=== PATIENT | female | born 1985 | race Caucasian/White ===

== ENCOUNTER 2017-01-26 12:26 | Inpatient (IN) | payer MEDICAID, OTHER ==
[~2017-01-26] VITALS: Ht 157.5 cm; Wt 48.0 kg
[2017-01-26] VITALS (8 sets, daily range): BP systolic 112–180; BP diastolic 58–84; PULSE 52–112; RESP 15–22; TEMP 97.4–98.2; O2SAT 98–100
[2017-01-26] MEDS ORDERED: MORPHINE SULFATE 4 MG/ML INJ IV PUSH ONE (13:00)
[2017-01-26] MEDS ORDERED: KETOROLAC TROMETHAMINE 30 MG/ML (IVP) VIAL IV PUSH ONE (13:00)
[2017-01-26 13:34] LABS: AUTOMATED NEUTROPHIL # 6.8 TH/MM3 (1.8-7.7); BASOPHIL % 0.1 % (0.0-2.0); EOSINOPHIL % 0.3 % (0.0-4.0); HEMO FLAGS DIFF FINAL; LYMPH % 20.1 % (9.0-44.0); LYMPHOCYTE # 1.9 TH/MM3 (1.0-4.8); MEAN CELL VOLUME 87.8 FL (80.0-100.0); MEAN CORPUSCULAR HEMOGLOBIN 29.9 PG (27.0-34.0); MEAN CORPUSCULAR HGB CONC 34.1 % (32.0-36.0); MONO % 6.6 % (0.0-8.0); NEUT % 72.9 % (16.0-70.0); PLATELET COUNT 192 TH/MM3 (150-450); RED BLOOD COUNT 4.33 MIL/MM3 (4.00-5.30); RED CELL DISTRIBUTION WIDTH 12.7 % (11.6-17.2); WHITE BLOOD COUNT 9.3 TH/MM3 (4.0-11.0)
--- NOTE | 2017-01-26 13:41 | RADRPT ---
EXAM DATE/TIME: 01/26/2017 13:30 [facility] COMPARISON: No previous studies available for comparison. INDICATIONS : Chest Pain MEDICAL HISTORY : None. SURGICAL HISTORY : None. ENCOUNTER: Initial ACUITY: 1 day PAIN SCORE: 10/10 LOCATION: Left chest FINDINGS: There is a large approximate 5.8 cm pneumothorax on the left side which wraps around the left lung wi thout definite displaced rib fractures. The lungs are clear without infiltrate, nodule, or mass. The re is no appreciable pleural effusion for technique. Heart and mediastinum are unremarkable. CONCLUSION: Large left pneumothorax without signs of tension. Wali Cornejo MD on January 26, 2017 at 13:38 Board Certified Radiologist. This report was verified electronically.
[2017-01-26 13:46] LABS: APTT (PATIENT) 28.5 SEC (24.3-30.1); PROTHROMBIN TIME - PATIENT 11.5 SEC (9.8-11.6)
[2017-01-26 13:53] LABS: ANION GAP 7 MEQ/L (5-15); BICARBONATE 23.8 MEQ/L (21.0-32.0); BLOOD UREA NITROGEN 10 MG/DL (7-18); CHLORIDE 110 MEQ/L (98-107); GLOMERULAR FILTRATION RATE 108 ML/MIN (>89); POTASSIUM 3.5 MEQ/L (3.5-5.1); SODIUM (NA) 141 MEQ/L (136-145)
[2017-01-26] MEDS ORDERED: LIDOCAINE HCL 1% 50 ML VIAL INFIL ONE (14:00)
[2017-01-26] MEDS ORDERED: HYDROmorphone HCL PF 1 MG/ML VIAL IV PUSH ONE ×2 (14:00→15:30)
[2017-01-26] MEDS ORDERED: MIDAZOLAM HCL 2 MG/2 ML VIAL IV PUSH ONE (14:00)
--- NOTE | 2017-01-26 15:07 | PD ---
HPI Chief Complaint: Chest Pain Time Seen by Provider: 12:41 Travel History International Travel<30 days: No Contact w/Intl Traveler<30days: No Traveled to known affect area: No History of Present Illness HPI Patient is a 31 year old female who comes in complaining of pain to the left side of her chest with SOB. She says the pain woke her up from sleep last night and got worse today. She says she has severe pain when taking deep breaths. She denies nausea or vomiting. She denies any leg pain or swelling. She denies any recent travel. PFSH Past Medical History ?: Not LMP: 01/26/17 Social History Alcohol Use: No Tobacco Use: Yes Substance Use: No Allergies-Medications (Allergen,Severity, Reaction): Coded Allergies: No Known Allergies (Unverified , 01/26/17) Reported Meds & Prescriptions Reported Meds & Active Scripts Active No Active Prescriptions or Reported Medications Review of Systems Except as stated in HPI: all other systems reviewed are Neg General / Constitutional: No: Fever, Chills HENT: No: Headaches, Lightheadedness Cardiovascular: Positive: Chest Pain or Discomfort Respiratory: Positive: Cough, Shortness of Breath Gastrointestinal: No: Nausea, Vomiting Genitourinary: No: Dysuria Musculoskeletal: No: Myalgias Skin: No Change in Pigmentation Neurologic: No: Weakness, Dizziness Physical Exam Narrative GENERAL: Awake and alert, in mild distress due to pain. SKIN: Focused skin assessment warm/dry. HEAD: Atraumatic. Normocephalic. EYES: Pupils equal and round. No scleral icterus. No injection or drainage. ENT: No nasal bleeding or discharge. Mucous membranes pink and moist. NECK: Trachea midline. No JVD. CARDIOVASCULAR: Regular rate and rhythm. No murmur appreciated. RESPIRATORY: No accessory muscle use. absent breath sounds on the left. MUSCULOSKELETAL: No obvious deformities. No clubbing. No cyanosis. No edema. NEUROLOGICAL: Awake and alert. No obvious cranial nerve deficits. Motor grossly within normal limits. Normal speech. PSYCHIATRIC: Appropriate mood and affect; insight and judgment normal. Data Data Last Documented VS Vital Signs Date Time Temp Pulse Resp B/P Pulse Ox O2 Delivery O2 Flow Rate FiO2 01/26/17 14:45 52 17 122/74 100 Non-Rebreather 12 01/26/17 12:29 98.2 Orders Chest, Pa & Lat (01/26/17 ) Complete Blood Count With Diff (01/26/17 12:53) Basic Metabolic Panel (Bmp) (01/26/17 12:53) Act Partial Throm Time (Ptt) (01/26/17 12:53) Prothrombin Time / Inr (Pt) (01/26/17 12:53) Troponin I (01/26/17 12:53) D-Dimer (01/26/17 12:53) Ketorolac Inj (Toradol Inj) (01/26/17 13:00) Morphine Inj (Morphine Inj) (01/26/17 13:00) Ed Urine Pregnancytest Poc (01/26/17 12:53) Electrocardiogram (01/26/17 ) Midazolam Inj (Versed Inj) (01/26/17 14:00) Hydromorphone Pf Inj (Dilaudid Pf Inj) (01/26/17 14:00) Lidocaine 1% Inj (50 Ml) (Xylocaine 1% I (01/26/17 14:00) Chest, Single Ap (01/26/17 ) Labs Laboratory Tests Test 01/26/17 13:00 White Blood Count 9.3 TH/MM3 Red Blood Count 4.33 MIL/MM3 Hemoglobin 13.0 GM/DL Hematocrit 38.0 % Mean Corpuscular Volume 87.8 FL Mean Corpuscular Hemoglobin 29.9 PG Mean Corpuscular Hemoglobin 34.1 % Concent Red Cell Distribution Width 12.7 % Platelet Count 192 TH/MM3 Mean Platelet Volume 8.0 FL Neutrophils (%) (Auto) 72.9 % Lymphocytes (%) (Auto) 20.1 % Monocytes (%) (Auto) 6.6 % Eosinophils (%) (Auto) 0.3 % Basophils (%) (Auto) 0.1 % Neutrophils # (Auto) 6.8 TH/MM3 Lymphocytes # (Auto) 1.9 TH/MM3 Monocytes # (Auto) 0.6 TH/MM3 Eosinophils # (Auto) 0.0 TH/MM3 Basophils # (Auto) 0.0 TH/MM3 CBC Comment DIFF FINAL Differential Comment Prothrombin Time 11.5 SEC Prothromb Time International 1.0 RATIO Ratio Activated Partial 28.5 SEC Thromboplast Time D-Dimer Quantitative (PE/DVT) 0.51 MG/L FEU Sodium Level 141 MEQ/L Potassium Level 3.5 MEQ/L Chloride Level 110 MEQ/L Carbon Dioxide Level 23.8 MEQ/L Anion Gap 7 MEQ/L Blood Urea Nitrogen 10 MG/DL Creatinine 0.64 MG/DL Estimat Glomerular Filtration 108 ML/MIN Rate Random Glucose 79 MG/DL Calcium Level 8.7 MG/DL Troponin I LESS THAN 0.02 NG/ML MDM Medical Decision Making Medical Screen Exam Complete: Yes Emergency Medical Condition: Yes Medical Record Reviewed: Yes Interpretation(s) ECG shows sinus rhythm at 64, no ST elevation or depression, ST flattening in aVL. Differential Diagnosis Pneumothorax versus pneumonia versus ACS Narrative Course Patient is a 31-year-old female who comes in complaining of chest pain and shortness of breath. Exam shows absent breath sounds on the left. IV established, labs sent. Chest x-ray obtained shows a left-sided pneumothorax. Chest tube inserted, patient placed on oxygen. Patient given pain medicine. Admitted for further management. Procedures Procedure Narrative CHEST TUBE THORACOSTOMY: The left chest was prepped with Betadine and sterilely draped. The area of the fifth intercostal interspace was infiltrated with 1% lidocaine plain. A 1.5 centimeter incision was made with a scalpel at the fifth intercostal space. Blunt dissection to the fourth intercostal interspace performed and the pleura was punctured with immediate hawkins of air. Finger was inserted in the space and thoracostomy tube was placed, directed posteriorly and superiorly. The thoracostomy tube was secured with suture. Sterile seal dressing placed. Patient tolerated procedure well. Diagnosis Primary Impression: Pneumothorax Qualified Code: J93.11 - Primary spontaneous pneumothorax Admitting Information Admitting Physician Requests: Admit Scripts No Active Prescriptions or Reported Meds Twyla Grayson MD Jan 26, 2017 15:07
--- NOTE | 2017-01-26 15:10 | RADRPT ---
EXAM DATE/TIME: 01/26/2017 14:37 [facility] COMPARISON: CHEST PA & LAT, January 26, 2017, 13:30. INDICATIONS : Status post chest tube placement. MEDICAL HISTORY : None. SURGICAL HISTORY : None. ENCOUNTER: Subsequent ACUITY: 1 day PAIN SCORE: Non-responsive. LOCATION: chest FINDINGS: There is minimal placement of a left-sided chest tube with resolution of the previous left pneumothor ax. Tiny apical pneumothorax persists. Minimal basal atelectasis. Heart size normal. CONCLUSION: 1. Placement of left chest tube with resolution of previous left pneumothorax except for a tiny left apical pneumothorax. Minimal base atelectasis. Immanuel Parra MD on January 26, 2017 at 15:06 Board Certified Radiologist. This report was verified electronically.
--- NOTE | 2017-01-26 15:28 | HHI.HP ---
[facility] Physician No Primary Care Physician Admission Diagnosis pneumothorax Diagnoses: Chief Complaint: Chest Pain Travel History International Travel<30 Days: No Contact w/Intl Traveler <30 Da: No Traveled to Known Affected Are: No History of Present Illness This is a pleasant 31 y/o Female who has no previous medical history who came to ER with Atypical left sided chest pain and Shortness of breath, She says the pain woke her up from sleep last night and got worse today. She says she has severe pain when taking deep breaths. She denies nausea or vomiting. She denies any leg pain or swelling. She denies any recent travel. the patient was seen in Emergency Room in the presence of Mr Rodriguez Strong and her Father Mr. Nuno Gil, she is stable somnolent due to pain medicine, but answer my questions. Review of Systems Respiratory: COMPLAINS OF: Shortness of breath Cardiovascular: COMPLAINS OF: Chest pain Past Family Social History Past Medical History Denies any past medical History Past Surgical History Denies any Surgical History Reported Medications Reported Meds & Active Scripts Active No Active Prescriptions or Reported Medications Allergies: Coded Allergies: No Known Allergies (Unverified , 01/26/17) Active Ordered Medications Current Medications Medications (Trade) Dose Ordered Sig/Halina Route Start Time Stop Time Status Last Admin (NS 1000 ml Inj) 1,000 ml @ 83 mls/hr Q12H3M IV 01/26/17 15:16 (NS Flush) 2 ml UNSCH PRN IV FLUSH 01/26/17 15:30 (NS Flush) 2 ml BID IV FLUSH 01/26/17 21:00 (Tylenol) 650 mg Q4H PRN PO 01/26/17 15:30 (Zofran Inj) 4 mg Q6H PRN IVP 01/26/17 15:30 (Dulcolax Supp) 10 mg DAILY PRN RECTAL 01/26/17 15:30 (Colace) 100 mg Q12H PO 01/26/17 15:30 (Narcan Inj) 0.4 mg UNSCH PRN IV 01/26/17 15:30 (Mucinex Er) 600 mg BID PO 01/26/17 21:00 (Habitrol 14 Mg Patch.24 Hr) 1 patch DAILY T-DERMAL 01/27/17 09:00 Miscellaneous Information 1 DAILY T-DERMAL 01/27/17 09:00 Miscellaneous Information 1 HS T-DERMAL 01/26/17 21:00 Family History Asked and the patient and her Father denies any medical history Social History Lives with her Kids and states Smokes one pack of cigarettes daily, denies other toxic habits. Physical Exam Vital Signs Vital Signs Date Time Temp Pulse Resp B/P Pulse Ox O2 Delivery O2 Flow Rate FiO2 01/26/17 14:45 52 17 122/74 100 Non-Rebreather 12 01/26/17 12:59 64 19 117/69 98 Room Air 01/26/17 12:29 98.2 80 15 112/81 98 Physical Exam GENERAL: Awake and alert, in mild distress due to pain. SKIN: Focused skin assessment warm/dry. HEAD: Atraumatic. Normocephalic. EYES: Pupils equal and round. No scleral icterus. No injection or drainage. ENT: No nasal bleeding or discharge. Mucous membranes pink and moist. NECK: Trachea midline. No JVD. CARDIOVASCULAR: Regular rate and rhythm. No murmur appreciated. RESPIRATORY: No accessory muscle use. Chest tube on left side present MUSCULOSKELETAL: No obvious deformities. No clubbing. No cyanosis. No edema. NEUROLOGICAL: Awake and alert. No obvious cranial nerve deficits. Motor grossly within normal limits. Normal speech. PSYCHIATRIC: Appropriate mood and affect; insight and judgment normal. Laboratory Laboratory Tests Test 01/26/17 13:00 White Blood Count 9.3 Red Blood Count 4.33 Hemoglobin 13.0 Hematocrit 38.0 Mean Corpuscular Volume 87.8 Mean Corpuscular Hemoglobin 29.9 Mean Corpuscular Hemoglobin 34.1 Concent Red Cell Distribution Width 12.7 Platelet Count 192 Mean Platelet Volume 8.0 Neutrophils (%) (Auto) 72.9 Lymphocytes (%) (Auto) 20.1 Monocytes (%) (Auto) 6.6 Eosinophils (%) (Auto) 0.3 Basophils (%) (Auto) 0.1 Neutrophils # (Auto) 6.8 Lymphocytes # (Auto) 1.9 Monocytes # (Auto) 0.6 Eosinophils # (Auto) 0.0 Basophils # (Auto) 0.0 CBC Comment DIFF FINAL Differential Comment Prothrombin Time 11.5 Prothromb Time International 1.0 Ratio Activated Partial 28.5 Thromboplast Time D-Dimer Quantitative (PE/DVT) 0.51 Sodium Level 141 Potassium Level 3.5 Chloride Level 110 Carbon Dioxide Level 23.8 Anion Gap 7 Blood Urea Nitrogen 10 Creatinine 0.64 Estimat Glomerular Filtration 108 Rate Random Glucose 79 Calcium Level 8.7 Troponin I LESS THAN 0.02 Result Diagram: 01/26/17 1300 01/26/17 1300 Imaging Last Impressions Chest X-Ray 01/26/17 0000 Signed Impressions: Service Date/Time: Thursday, January 26, 2017 13:30 - CONCLUSION: Large left pneumothorax without signs of tension. Wali Cornejo MD Assessment and Plan Assessment and Plan 1. Large Left Spontaneous Pneumothorax, ECG shows sinus rhythm at 64, no ST elevation or depression, ST flattening in aVL. Chest tube inserted by ER specialist, continue Oxygen as needed, Bronchodilator, Mucolytic, incentive spirometry, follow laboratory, TSH, Free T4, hemoglobin A1C, Lipi Profile. insurance customer service specialist consult, Pain medicine. 2. Tobacco dependence given Nicotine replacement, strongly recommended to stop smoking DVT prophylaxis with SCDs. Discussed with Emergency Medicine specialist Doctor Twyla Grayson Code Status Full Code. Discussed Condition With Discussed with Emergency Medicine specialist Doctor Twyla Grayson Patient, Mr. Rodriguez Strong and her Father Mr. Nuno Gil. all questions answered to the best of my abilities. Physician Certification 2 Midnight Certification Type: Admission for Inpatient Services Order for Inpatient Services The services are ordered in accordance with Medicare regulations or non- Medicare payer requirements, as applicable. In the case of services not specified as inpatient-only, they are appropriately provided as inpatient services in accordance with the 2-midnight benchmark. Estimated LOS (days): 3 days is the estimated time the patient will need to remain in the hospital, assuming treatment plan goals are met and no additional complications. Post-Hospital Plan: Home Mariano Montiel MD Jan 26, 2017 15:28
[2017-01-26] MEDS ORDERED: BISACODYL 10 MG SUPP RECTAL PRN (15:30)
[2017-01-26] MEDS: DOCUSATE SODIUM 100 MG CAP PO SCH (15:30)
[2017-01-26] MEDS ORDERED: ACETAMINOPHEN 325 MG TAB PO PRN (15:30)
[2017-01-26] MEDS ORDERED: SODIUM CHLORIDE 0.9% FLUSH 10 ML FLUSH IV FLUSH PRN (15:30)
[2017-01-26] MEDS ORDERED: NALOXONE HCL 0.4 MG/ML AMP IV PRN (15:30)
[2017-01-26] MEDS ORDERED: ONDANSETRON HCL 4 MG/2 ML VIAL IVP PRN (15:30)
[2017-01-26] MEDS: RESP: ALBUTEROL 2.5 MG/IPRATROPIUM 0.5 MG NEB (SCH) NEB (16:14)
[2017-01-26] MEDS: SODIUM CHLOR 0.9% 1000 ML INJ 1,000 ML IV SCH (16:15)
[2017-01-26 16:36] LABS: BACTERIA, URINE FEW /hpf; BLOOD, URINE MOD (NEG); COMMENT (UR) CULTURE INDICATED; CULTURE IF INDICATED CULTURE INDICATED; GLUCOSE,URINE NEG (NEG); KETONE, URINE 40 mg/dL (NEG); MUCUS URINE MANY /lpf (OCC); SQUAMOUS EPITHELIAL CELL URINE 5 /hpf (0-5)
[2017-01-26 16:38] LABS: NITRITE,URINE POS (NEG); URINE COLOR LIGHT-ORANGE (YELLW/STRAW)
[2017-01-26 17:45] LABS: BARBITURATES, URINE NEG (NEG); COCAINE, URINE NEG (NEG)
[2017-01-26 17:46] LABS: AMPHETAMINE, URINE POS (NEG)
--- NOTE | 2017-01-26 18:12 | MB ---
cc: PAULINO SIDDIQUI DATE OF CONSULTATION 01/26/[address] Flores REASON FOR CONSULTATION Evaluation of pneumothorax. HISTORY OF PRESENT ILLNESS Ms. Strong is a pleasant 31-year-old female with history of nicotine use, continues to smoke half a pack of cigarettes a day. She woke up with shortness of breath around 4 o'clock in the morning. She tried to go back to sleep, could not go back to sleep and, after awhile, she was also started to have chest pain with taking a deep breath. She did not feel better. She came to the emergency room. She was found to have a large left pneumothorax. Chest tube was placed by ER physician and had resolution of the pneumothorax. She denies any shortness of breath now, does have mild chest discomfort. She does not have any prior history of any pneumothorax or any lung problem, asthma or emphysema. No cocaine use. No bout of cough before the pneumothorax and no injury. PAST MEDICAL HISTORY unremarkable. MEDICATIONS At home, 1. Nicotine patch 2. Guaifenesin 600 mg twice a day 3. Albuterol/Atrovent nebulizer treatment. 4. Morphine for pain. ALLERGIES NO KNOWN DRUG ALLERGIES. SOCIAL HISTORY She is single. Lives with her children. She has three children. Has history of smoking. Continues to smoke half pack of cigarettes a day. Denies any drug use. 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 FAMILY HISTORY Noncontributory REVIEW OF SYSTEMS Her weight is stable. No hemoptysis. No DVT or pulmonary embolism. No seizure, stroke or epilepsy. No COPD. She has implant for blood control three years ago. PHYSICAL EXAMINATION GENERAL: Moderately built, well-nourished female not in acute distress. VITAL SIGNS: Blood pressure is 127/58, heart rate 65, respirations 20, temperature 98.2 HEENT: Pupils are equal and reactive to light. Oral mucosa, nasal mucosa normal. NECK: Supple. JVP not raised. CHEST: She has left chest tube in place. No air leak. No subcutaneous emphysema. Good breath sounds bilaterally. CARDIOVASCULAR: S1, S2 normal. ABDOMEN: Soft, nondistended. Bowel sounds are present. EXTREMITIES: No edema. IMPRESSION 1. Spontaneous pneumothorax resolved with chest tube placement. 2. Nicotine use. PLAN I discussed with the patient and advised her to quit smoking. Her chest tube is on suction. We will get the chest x-ray tomorrow and, if no pneumothorax, we will clamp the chest tube and proceed from there. Further treatment will depend on the course in the hospital. Thank you, Dr. Flores, for this consultation. MD LUCERO Keller/ /5:33 PM /5:50 PM
[2017-01-26] MEDS: MORPHINE SULFATE 4 MG/ML INJ IV PUSH PRN ×2 (18:24→22:04)
[2017-01-26] MEDS: guaiFENesin E.R. 600 MG TAB PO SCH (20:04)
[2017-01-26] MEDS: SODIUM CHLORIDE 0.9% FLUSH 10 ML FLUSH IV FLUSH SCH (20:06)
[2017-01-26] MEDS: REMOVE OLD PATCH T-DERMAL SCH (20:08)
[2017-01-26 20:12] LABS: CREATINE KINASE 144 U/L (26-192)
[2017-01-27] VITALS (11 sets, daily range): BP systolic 105–144; BP diastolic 55–72; PULSE 52–96; RESP 15–22; TEMP 97.4–98.9; O2SAT 97–100
[2017-01-27] MEDS: RESP: ALBUTEROL 2.5 MG/IPRATROPIUM 0.5 MG NEB (SCH) NEB ×7 (00:46→23:41)
[2017-01-27] MEDS: MORPHINE SULFATE 4 MG/ML INJ IV PUSH PRN ×7 (00:54→23:43)
[2017-01-27 01:26] LABS: AUTOMATED NEUTROPHIL # 6.2 TH/MM3 (1.8-7.7); BASOPHIL % 0.1 % (0.0-2.0); EOSINOPHIL % 0.4 % (0.0-4.0); HEMATOCRIT 37.5 % (35.0-46.0); HEMO FLAGS DIFF FINAL; LYMPH % 19.2 % (9.0-44.0); LYMPHOCYTE # 1.6 TH/MM3 (1.0-4.8); MEAN CELL VOLUME 89.6 FL (80.0-100.0); MEAN CORPUSCULAR HEMOGLOBIN 29.4 PG (27.0-34.0); MEAN CORPUSCULAR HGB CONC 32.8 % (32.0-36.0); MONO % 5.9 % (0.0-8.0); NEUT % 74.4 % (16.0-70.0); PLATELET COUNT 159 TH/MM3 (150-450); RED BLOOD COUNT 4.18 MIL/MM3 (4.00-5.30); RED CELL DISTRIBUTION WIDTH 12.6 % (11.6-17.2); WHITE BLOOD COUNT 8.3 TH/MM3 (4.0-11.0)
[2017-01-27 01:47] LABS: CREATINE KINASE 157 U/L (26-192); FREE T4 1.43 NG/DL (0.76-1.46)
[2017-01-27] MEDS: DOCUSATE SODIUM 100 MG CAP PO SCH ×2 (03:30→15:56)
[2017-01-27] MEDS: SODIUM CHLOR 0.9% 1000 ML INJ 1,000 ML IV SCH ×2 (05:00→15:55)
[2017-01-27 05:47] LABS: POTASSIUM 3.5 MEQ/L (3.5-5.1)
[2017-01-27 05:50] LABS: HDL CHOLESTEROL 49.9 MG/DL (40.0-60.0)
[2017-01-27] MEDS: guaiFENesin E.R. 600 MG TAB PO SCH ×2 (07:34→19:39)
[2017-01-27] MEDS: NICOTINE 14 MG/24 HR PATCH T-DERMAL SCH (07:34)
[2017-01-27] MEDS: REMOVE OLD PATCH T-DERMAL SCH ×2 (07:34→19:43)
[2017-01-27] MEDS: SODIUM CHLORIDE 0.9% FLUSH 10 ML FLUSH IV FLUSH SCH ×2 (07:34→19:41)
--- NOTE | 2017-01-27 09:33 | HHI.PR ---
Subjective Remarks This is a pleasant 31 y/o Female who has no previous medical history who came to ER with Atypical left sided chest pain and Shortness of breath, She says the pain woke her up from sleep last night and got worse today. She says she has severe pain when taking deep breaths. She denies nausea or vomiting. 01/27: Seen in her bedroom in the presence of her Significant other, no complaint , no nausea, vomit or diarrhea. Objective Vital Signs Date Time Temp Pulse Resp B/P Pulse Ox O2 Delivery O2 Flow Rate FiO2 01/27/17 08:08 98 21 01/27/17 08:00 97.9 52 17 106/56 98 01/27/17 04:00 97.6 65 22 144/70 97 01/27/17 03:35 98 21 01/27/17 00:55 98 Nasal Cannula 21 01/27/17 00:00 98.9 60 20 105/55 100 01/26/17 22:16 97.8 112 22 180/84 100 01/26/17 20:05 80 01/26/17 18:00 97.4 82 19 134/80 99 01/26/17 17:26 65 22 127/58 98 Nasal Cannula 3 01/26/17 16:17 99 Nasal Cannula 3.00 01/26/17 14:45 52 17 122/74 100 Non-Rebreather 12 01/26/17 12:59 64 19 117/69 98 Room Air 01/26/17 12:29 98.2 80 15 112/81 98 I/O 01/26/17 01/26/17 01/26/17 01/27/17 01/27/17 01/27/17 07:00 15:00 23:00 07:00 15:00 23:00 Intake Total 280 ml 806 ml Output Total 10 ml 200 ml 10 ml Balance -10 ml 80 ml 796 ml Intake Oral 120 ml 120 ml IV Total 160 ml 686 ml Output Urine Total 200 ml Chest Tube Drainage Total 10 ml 10 ml # Voids 0 # Bowel Movements 0 0 Result Diagram: 01/27/17 0050 01/27/17 0451 Imaging Last Impressions Chest X-Ray 01/26/17 0000 Signed Impressions: Service Date/Time: Thursday, January 26, 2017 14:37 - CONCLUSION: 1. Placement of left chest tube with resolution of previous left pneumothorax except for a tiny left apical pneumothorax. Minimal base atelectasis. Immanuel Parra MD Procedures Left Chest tube placement Other Results Laboratory Tests Test 01/26/17 01/26/17 01/27/17 01/27/17 13:00 15:45 00:50 04:51 Prothrombin Time 11.5 SEC Prothromb Time International 1.0 RATIO Ratio Activated Partial 28.5 SEC Thromboplast Time D-Dimer Quantitative (PE/DVT) 0.51 MG/L FEU Urine Color LIGHT-ORANGE Urine Turbidity CLOUDY Urine pH 6.0 Urine Specific [place] 1.036 Urine Protein 30 mg/dL Urine Glucose (UA) NEG mg/dL Urine Ketones 40 mg/dL Urine Occult Blood MOD Urine Nitrite POS Urine Bilirubin NEG Urine Urobilinogen LESS THAN 2.0 MG/DL Urine Leukocyte Esterase LARGE Urine WBC 93 /hpf Urine WBC Clumps MANY Urine Squamous Epithelial 5 /hpf Cells Urine Bacteria FEW /hpf Urine Mucus MANY /lpf Microscopic Urinalysis Comment CULTURE INDICATED Urine Opiates Screen NEG Urine Barbiturates Screen NEG Urine Amphetamines Screen POS Urine Benzodiazepines Screen NEG Urine Cocaine Screen NEG Urine Cannabinoids Screen POS White Blood Count 8.3 TH/MM3 Red Blood Count 4.18 MIL/MM3 Hemoglobin 12.3 GM/DL Hematocrit 37.5 % Mean Corpuscular Volume 89.6 FL Mean Corpuscular Hemoglobin 29.4 PG Mean Corpuscular Hemoglobin 32.8 % Concent Red Cell Distribution Width 12.6 % Platelet Count 159 TH/MM3 Mean Platelet Volume 7.8 FL Neutrophils (%) (Auto) 74.4 % Lymphocytes (%) (Auto) 19.2 % Monocytes (%) (Auto) 5.9 % Eosinophils (%) (Auto) 0.4 % Basophils (%) (Auto) 0.1 % Neutrophils # (Auto) 6.2 TH/MM3 Lymphocytes # (Auto) 1.6 TH/MM3 Monocytes # (Auto) 0.5 TH/MM3 Eosinophils # (Auto) 0.0 TH/MM3 Basophils # (Auto) 0.0 TH/MM3 CBC Comment DIFF FINAL Differential Comment Total Creatine Kinase 157 U/L Troponin I LESS THAN 0.02 NG/ML Free Thyroxine 1.43 NG/DL Thyroid Stimulating Hormone 0.279 uIU/ML 3rd Gen Sodium Level 143 MEQ/L Potassium Level 3.5 MEQ/L Chloride Level 111 MEQ/L Carbon Dioxide Level 20.0 MEQ/L Anion Gap 12 MEQ/L Blood Urea Nitrogen 9 MG/DL Creatinine 0.47 MG/DL Estimat Glomerular Filtration 155 ML/MIN Rate Random Glucose 68 MG/DL Calcium Level 8.0 MG/DL Triglycerides Level 47 MG/DL Cholesterol Level 97 MG/DL LDL Cholesterol 38 MG/DL HDL Cholesterol 49.9 MG/DL Cholesterol/HDL Ratio 1.94 RATIO Objective Remarks GENERAL: Awake and alert, in mild distress due to pain. SKIN: Focused skin assessment warm/dry. HEAD: Atraumatic. Normocephalic. EYES: Pupils equal and round. No scleral icterus. No injection or drainage. ENT: No nasal bleeding or discharge. Mucous membranes pink and moist. NECK: Trachea midline. No JVD. CARDIOVASCULAR: Regular rate and rhythm. No murmur appreciated. RESPIRATORY: No accessory muscle use. Chest tube on left side present MUSCULOSKELETAL: No obvious deformities. No clubbing. No cyanosis. No edema. NEUROLOGICAL: Awake and alert. No obvious cranial nerve deficits. Motor grossly within normal limits. Normal speech. PSYCHIATRIC: Appropriate mood and affect; insight and judgment normal. Medications and IVs Current Medications Medications (Trade) Dose Ordered Sig/Halina Route Start Time Stop Time Status Last Admin (NS 1000 ml Inj) 1,000 ml @ 83 mls/hr Q12H3M IV 01/26/17 15:16 01/27/17 05:00 (NS Flush) 2 ml UNSCH PRN IV FLUSH 01/26/17 15:30 (NS Flush) 2 ml BID IV FLUSH 01/26/17 21:00 (Tylenol) 650 mg Q4H PRN PO 01/26/17 15:30 (Zofran Inj) 4 mg Q6H PRN IVP 01/26/17 15:30 (Dulcolax Supp) 10 mg DAILY PRN RECTAL 01/26/17 15:30 (Colace) 100 mg Q12H PO 01/26/17 15:30 (Narcan Inj) 0.4 mg UNSCH PRN IV 01/26/17 15:30 (Mucinex Er) 600 mg BID PO 01/26/17 21:00 01/26/17 20:04 (Habitrol 14 Mg Patch.24 Hr) 1 patch DAILY T-DERMAL 01/27/17 09:00 Miscellaneous Information 1 DAILY T-DERMAL 01/27/17 09:00 Miscellaneous Information 1 HS T-DERMAL 01/26/17 21:00 (Morphine Inj) 2 mg Q3H PRN IV PUSH 01/26/17 16:00 01/27/17 07:33 A/P Assessment and Plan 1. Large Left Spontaneous Pneumothorax, ECG shows sinus rhythm at 64, no ST elevation or depression, ST flattening in aVL. Chest tube inserted by ER specialist, continue Oxygen as needed, Bronchodilator, Mucolytic, incentive spirometry, Stable tomorrow will have new CXR and possible to clamp the chest tube by retail product demo specialist appreciated assistance 2. Tobacco dependence given Nicotine replacement, strongly recommended to stop smoking DVT prophylaxis with SCDs. Code Status Full Code. Discussed Condition With Patient her significant Other and nurse Miss Casey present with me at all times while I was in the room. Discharge Planning When clear by retail product demo specialist. Mariano Montiel MD Jan 27, 2017 09:33
[2017-01-27 11:10] LABS: HEMOGLOBIN A1b 1.3 %; HEMOGLOBIN Ao 87.2 %; HEMOGLOBIN LA1C 1.5 %; HEMOGLOBIN P3 3.3 %
--- NOTE | 2017-01-27 14:12 | EKG ---
Date Performed: 01/26/2017 Time Performed: 12:49:59 PTAGE: 31 years EKG: Sinus rhythm WITH SHORT MA INTERVAL LOW QRS VOLTAGE IN PRECORDIAL LEADS BORDERLINE ECG NO PREVIOUS TRACING DOCTOR: Vick Desir Interpretating Date/Time 01/27/2017 14:11:07
--- NOTE | 2017-01-27 18:31 | HHI.PR ---
Subjective Remarks 31 YOWF with PTX, s/p Chest tube has mild CP Denies sob has cough Chest tube no airleak. Objective Vital Signs Vital Signs Date Time Temp Pulse Resp B/P Pulse Ox O2 Delivery O2 Flow Rate FiO2 01/27/17 16:00 98.0 54 15 124/72 97 01/27/17 12:00 97.5 56 17 110/70 99 01/27/17 08:08 98 21 01/27/17 08:00 97.9 52 17 106/56 98 01/27/17 04:00 97.6 65 22 144/70 97 01/27/17 03:35 98 21 01/27/17 00:55 98 Nasal Cannula 21 01/27/17 00:00 98.9 60 20 105/55 100 01/26/17 22:16 97.8 112 22 180/84 100 01/26/17 20:05 80 I/O 01/26/17 01/26/17 01/26/17 01/27/17 01/27/17 01/27/17 07:00 15:00 23:00 07:00 15:00 23:00 Intake Total 280 ml 806 ml 994 ml Output Total 10 ml 200 ml 10 ml 604 ml Balance -10 ml 80 ml 796 ml 390 ml Intake Oral 120 ml 120 ml 240 ml IV Total 160 ml 686 ml 754 ml Output Urine Total 200 ml 600 ml Chest Tube Drainage Total 10 ml 10 ml 4 ml # Voids 0 # Bowel Movements 0 0 0 Result Diagram: 01/27/17 0050 01/27/17 0451 Objective Remarks GENERAL: MBMN WF NAD SKIN: Warm and dry. HEAD: Normocephalic. EYES: No scleral icterus. No injection or drainage. NECK: Supple, trachea midline. No JVD or lymphadenopathy. CARDIOVASCULAR: Regular rate and rhythm without murmurs, gallops, or rubs. RESPIRATORY: Breath sounds equal bilaterally. No accessory muscle use. Good BS bilat No airleak GASTROINTESTINAL: Abdomen soft, non-tender, nondistended. MUSCULOSKELETAL: No cyanosis, or edema. BACK: Nontender without obvious deformity. No CVA tenderness. A/P Assessment and Plan Left Spontaneous PTx resolved. Left Chest tube nicotine use PLAN: Ish tube to Suction Will Clamp chest tube in AM CXR in AM Sarmad Fontenot MD Jan 27, 2017 18:31
[2017-01-28 00:58] VITALS: BP 133/74; PULSE 84; RESP 17; TEMP 98.1; O2SAT 94
[2017-01-28] MEDS: RESP: ALBUTEROL 2.5 MG/IPRATROPIUM 0.5 MG NEB (SCH) NEB ×2 (03:06→08:00)
[2017-01-28] MEDS: MORPHINE SULFATE 4 MG/ML INJ IV PUSH PRN ×6 (03:26→23:58)
[2017-01-28] MEDS: DOCUSATE SODIUM 100 MG CAP PO SCH ×2 (03:29→14:40)
[2017-01-28] MEDS: SODIUM CHLOR 0.9% 1000 ML INJ 1,000 ML IV SCH ×2 (03:29→14:41)
[2017-01-28 04:46] VITALS: BP 126/63; PULSE 80; RESP 17; TEMP 97.6; O2SAT 98
--- NOTE | 2017-01-28 07:13 | RADRPT ---
EXAM DATE/TIME: 01/28/2017 05:49 [facility] COMPARISON: CHEST SINGLE AP, January 26, 2017, 14:37. INDICATIONS : Pain left chest, evaluate chest tube and left side pneumothorax MEDICAL HISTORY : pneumothorax SURGICAL HISTORY : chest tube ENCOUNTER: Subsequent ACUITY: 3 days PAIN SCORE: 10/10 LOCATION: Left chest FINDINGS: There is a tiny left apical pneumothorax with 2 mm of separation. The left-sided chest tube remains i n place. The lungs are grossly clear. There are no pleural effusions or pulmonary edema. The bony str uctures are stable. CONCLUSION: Tiny left apical pneumothorax with 2 mm of separation. Amos Burt MD on January 28, 2017 at 7:11 Board Certified Radiologist. This report was verified electronically.
[2017-01-28 08:00] VITALS: BP 115/69; PULSE 53; RESP 18; TEMP 97.7; O2SAT 98
--- NOTE | 2017-01-28 08:10 | HHI.PR ---
Subjective Remarks This is a pleasant 31 y/o Female who has no previous medical history who came to ER with Atypical left sided chest pain and Shortness of breath, She says the pain woke her up from sleep last night and got worse today. She says she has severe pain when taking deep breaths. She denies nausea or vomiting. 01/27: Seen in her bedroom in the presence of her Significant other. 01/28: Stable in her bedroom in the presence of her Significant Other, new CXR this morning showing, Tiny left apical Pneumothorax. event set up specialist following, he will clamp the Chest tube today if indicated. as per nurse Miss Camilo and she states wants to go Home was explained how the Chest tube works and the need to wait until can be clamped and removed if indicated. Objective Vital Signs Date Time Temp Pulse Resp B/P Pulse Ox O2 Delivery O2 Flow Rate FiO2 01/28/17 04:46 97.6 80 17 126/63 98 01/28/17 00:58 98.1 84 17 133/74 94 01/27/17 22:15 96 01/27/17 20:00 97.4 80 16 130/70 97 01/27/17 19:47 98 21 01/27/17 16:00 98.0 54 15 124/72 97 01/27/17 12:00 97.5 56 17 110/70 99 I/O 01/27/17 01/27/17 01/27/17 01/28/17 01/28/17 01/28/17 07:00 15:00 23:00 07:00 15:00 23:00 Intake Total 806 ml 994 ml 974 ml 1177 ml Output Total 10 ml 604 ml 800 ml 1200 ml Balance 796 ml 390 ml 174 ml -23 ml Intake Oral 120 ml 240 ml 480 ml 480 ml IV Total 686 ml 754 ml 494 ml 697 ml Output Urine Total 600 ml 800 ml 1200 ml Chest Tube Drainage Total 10 ml 4 ml # Voids 0 # Bowel Movements 0 0 Result Diagram: 01/27/17 0050 01/27/17 0451 Imaging Last Impressions Chest X-Ray 01/28/17 0600 Signed Impressions: Service Date/Time: Saturday, January 28, 2017 05:49 - CONCLUSION: Tiny left apical pneumothorax with 2 mm of separation. Amos Burt MD Procedures Left Chest tube placement Other Results Laboratory Tests Test 01/26/17 01/26/17 01/27/17 01/27/17 13:00 15:45 00:50 04:51 Prothrombin Time 11.5 SEC Prothromb Time International 1.0 RATIO Ratio Activated Partial 28.5 SEC Thromboplast Time D-Dimer Quantitative (PE/DVT) 0.51 MG/L FEU Urine Opiates Screen NEG Urine Barbiturates Screen NEG Urine Amphetamines Screen POS Urine Benzodiazepines Screen NEG Urine Cocaine Screen NEG Urine Cannabinoids Screen POS Urine Color LIGHT-ORANGE Urine Turbidity CLOUDY Urine pH 6.0 Urine Specific [place] 1.036 Urine Protein 30 mg/dL Urine Glucose (UA) NEG mg/dL Urine Ketones 40 mg/dL Urine Occult Blood MOD Urine Nitrite POS Urine Bilirubin NEG Urine Urobilinogen LESS THAN 2.0 MG/DL Urine Leukocyte Esterase LARGE Urine WBC 93 /hpf Urine WBC Clumps MANY Urine Squamous Epithelial 5 /hpf Cells Urine Bacteria FEW /hpf Urine Mucus MANY /lpf Microscopic Urinalysis Comment CULTURE INDICATED White Blood Count 8.3 TH/MM3 Red Blood Count 4.18 MIL/MM3 Hemoglobin 12.3 GM/DL Hematocrit 37.5 % Mean Corpuscular Volume 89.6 FL Mean Corpuscular Hemoglobin 29.4 PG Mean Corpuscular Hemoglobin 32.8 % Concent Red Cell Distribution Width 12.6 % Platelet Count 159 TH/MM3 Mean Platelet Volume 7.8 FL Neutrophils (%) (Auto) 74.4 % Lymphocytes (%) (Auto) 19.2 % Monocytes (%) (Auto) 5.9 % Eosinophils (%) (Auto) 0.4 % Basophils (%) (Auto) 0.1 % Neutrophils # (Auto) 6.2 TH/MM3 Lymphocytes # (Auto) 1.6 TH/MM3 Monocytes # (Auto) 0.5 TH/MM3 Eosinophils # (Auto) 0.0 TH/MM3 Basophils # (Auto) 0.0 TH/MM3 CBC Comment DIFF FINAL Differential Comment Hemoglobin A1c 5.1 % Total Creatine Kinase 157 U/L Troponin I LESS THAN 0.02 NG/ML Free Thyroxine 1.43 NG/DL Thyroid Stimulating Hormone 0.279 uIU/ML 3rd Gen Sodium Level 143 MEQ/L Potassium Level 3.5 MEQ/L Chloride Level 111 MEQ/L Carbon Dioxide Level 20.0 MEQ/L Anion Gap 12 MEQ/L Blood Urea Nitrogen 9 MG/DL Creatinine 0.47 MG/DL Estimat Glomerular Filtration 155 ML/MIN Rate Random Glucose 68 MG/DL Calcium Level 8.0 MG/DL Triglycerides Level 47 MG/DL Cholesterol Level 97 MG/DL LDL Cholesterol 38 MG/DL HDL Cholesterol 49.9 MG/DL Cholesterol/HDL Ratio 1.94 RATIO Objective Remarks GENERAL: Awake and alert, in mild distress due to pain. SKIN: Focused skin assessment warm/dry. HEAD: Atraumatic. Normocephalic. ENT: Extraocular movements Intact NECK: Trachea midline. No JVD. RESPIRATORY: No accessory muscle use. Chest tube on left side present MUSCULOSKELETAL: No obvious deformities. No clubbing. No cyanosis. No edema. NEUROLOGICAL: Awake and alert. PSYCHIATRIC: Appropriate mood. Medications and IVs Current Medications Medications (Trade) Dose Ordered Sig/Halina Route Start Time Stop Time Status Last Admin (NS 1000 ml Inj) 1,000 ml @ 83 mls/hr Q12H3M IV 01/26/17 15:16 01/28/17 03:29 (NS Flush) 2 ml UNSCH PRN IV FLUSH 01/26/17 15:30 (NS Flush) 2 ml BID IV FLUSH 01/26/17 21:00 (Tylenol) 650 mg Q4H PRN PO 01/26/17 15:30 (Zofran Inj) 4 mg Q6H PRN IVP 01/26/17 15:30 (Dulcolax Supp) 10 mg DAILY PRN RECTAL 01/26/17 15:30 (Colace) 100 mg Q12H PO 01/26/17 15:30 01/27/17 15:56 (Narcan Inj) 0.4 mg UNSCH PRN IV 01/26/17 15:30 (Mucinex Er) 600 mg BID PO 01/26/17 21:00 01/27/17 19:39 (Habitrol 14 Mg Patch.24 Hr) 1 patch DAILY T-DERMAL 01/27/17 09:00 Miscellaneous Information 1 DAILY T-DERMAL 01/27/17 09:00 Miscellaneous Information 1 HS T-DERMAL 01/26/17 21:00 (Morphine Inj) 2 mg Q3H PRN IV PUSH 01/26/17 16:00 01/28/17 06:44 A/P Assessment and Plan 1. Large Left Spontaneous Pneumothorax, ECG shows sinus rhythm at 64, no ST elevation or depression, ST flattening in aVL. Chest tube inserted by ER specialist, continue Oxygen as needed, Bronchodilator, Mucolytic, incentive spirometry, Status post CXR found Left Tiny apical Pneumothorax, awaiting final recommendations by event set up specialist. 2. Tobacco dependence given Nicotine replacement, strongly recommended to stop smoking 3. Polysubstance abuse strongly recommended to stop behavior. DVT prophylaxis with SCDs. Code Status Full Code. Discussed Condition With Patient her significant Other in the room. Discharge Planning When clear by event set up specialist. Mariano Montiel MD Jan 28, 2017 08:10
[2017-01-28] MEDS: NICOTINE 14 MG/24 HR PATCH T-DERMAL SCH (09:00)
[2017-01-28] MEDS: SODIUM CHLORIDE 0.9% FLUSH 10 ML FLUSH IV FLUSH SCH ×2 (09:00→20:10)
[2017-01-28] MEDS: REMOVE OLD PATCH T-DERMAL SCH ×2 (09:00→20:10)
[2017-01-28] MEDS: guaiFENesin E.R. 600 MG TAB PO SCH ×2 (09:16→20:09)
[2017-01-28] MEDS ORDERED: RESP: ALBUTEROL 2.5 MG/IPRATROPIUM 0.5 MG NEB (PRN) NEB (11:30)
[2017-01-28 12:00] VITALS: BP 119/70; PULSE 56; RESP 18; TEMP 97.1; O2SAT 98
[2017-01-28 16:00] VITALS: BP 108/63; PULSE 61; RESP 18; TEMP 98.6; O2SAT 98
--- NOTE | 2017-01-28 19:23 | HHI.PR ---
Subjective Remarks 31 YOWF with PTX, s/p Chest tube has mild CP Denies sob has cough Chest tube no airleak. CXR Tiny apical PTX Objective Vital Signs Vital Signs Date Time Temp Pulse Resp B/P Pulse Ox O2 Delivery O2 Flow Rate FiO2 01/28/17 16:00 98.6 61 18 108/63 98 01/28/17 12:00 97.1 56 18 119/70 98 01/28/17 08:00 97.7 53 18 115/69 98 01/28/17 04:46 97.6 80 17 126/63 98 01/28/17 00:58 98.1 84 17 133/74 94 01/27/17 22:15 96 01/27/17 20:00 97.4 80 16 130/70 97 01/27/17 19:47 98 21 I/O 01/27/17 01/27/17 01/27/17 01/28/17 01/28/17 01/28/17 07:00 15:00 23:00 07:00 15:00 23:00 Intake Total 806 ml 994 ml 974 ml 1177 ml 1607 ml Output Total 10 ml 604 ml 800 ml 1200 ml 1400 ml Balance 796 ml 390 ml 174 ml -23 ml 207 ml Intake Oral 120 ml 240 ml 480 ml 480 ml 720 ml IV Total 686 ml 754 ml 494 ml 697 ml 887 ml Output Urine Total 600 ml 800 ml 1200 ml 1400 ml Chest Tube Drainage Total 10 ml 4 ml # Voids 0 # Bowel Movements 0 0 Result Diagram: 01/27/17 0050 01/27/17 0451 Objective Remarks GENERAL: MBMN WF NAD SKIN: Warm and dry. HEAD: Normocephalic. EYES: No scleral icterus. No injection or drainage. NECK: Supple, trachea midline. No JVD or lymphadenopathy. CARDIOVASCULAR: Regular rate and rhythm without murmurs, gallops, or rubs. RESPIRATORY: Breath sounds equal bilaterally. No accessory muscle use. Good BS bilat No airleak GASTROINTESTINAL: Abdomen soft, non-tender, nondistended. MUSCULOSKELETAL: No cyanosis, or edema. BACK: Nontender without obvious deformity. No CVA tenderness. A/P Assessment and Plan Left Spontaneous PTx resolved. Left Chest tube nicotine use PLAN: Ish tube to Suction Will Clamp chest tube in AM RPT CXR in AM If no ptx, will dc chest tube DW pt and Family Sarmad Fontenot MD Jan 28, 2017 19:23
[2017-01-28 20:00] VITALS: BP 114/71; PULSE 52; RESP 21; TEMP 98.2; O2SAT 97
[2017-01-29] VITALS: BP 123/73; PULSE 62; RESP 20; TEMP 98.8; O2SAT 97
[2017-01-29] MEDS: DOCUSATE SODIUM 100 MG CAP PO SCH ×2 (03:32→15:27)
[2017-01-29] MEDS: SODIUM CHLOR 0.9% 1000 ML INJ 1,000 ML IV SCH ×2 (03:32→15:27)
[2017-01-29 04:00] VITALS: BP 111/68; PULSE 54; RESP 20; TEMP 98.4; O2SAT 97
[2017-01-29] MEDS: MORPHINE SULFATE 4 MG/ML INJ IV PUSH PRN ×5 (04:33→23:29)
--- NOTE | 2017-01-29 06:22 | RADRPT ---
EXAM DATE/TIME: 01/29/2017 05:03 [facility] COMPARISON: CHEST SINGLE AP, January 28, 2017, 5:49. INDICATIONS : Pain in left chest, evaluate left apical pneumothorax and chest tube MEDICAL HISTORY : pneumothorax SURGICAL HISTORY : chest tube ENCOUNTER: Subsequent ACUITY: 4 - 6 days PAIN SCORE: 8/10 LOCATION: Left chest FINDINGS: A single view of the chest demonstrates the left-sided chest tubes in good position. Tiny left apical pneumothorax. The cardiomediastinal contours are unremarkable. Osseous structures are intact. CONCLUSION: Left chest remains in good position. Tiny left apical pneumothorax persists. Lungs are clear. Taye Lyons MD on January 29, 2017 at 6:20 Board Certified Radiologist. This report was verified electronically.
[2017-01-29 08:00] VITALS: BP 120/78; PULSE 66; RESP 17; TEMP 98.4; O2SAT 98
[2017-01-29] MEDS: guaiFENesin E.R. 600 MG TAB PO SCH ×2 (08:15→20:13)
[2017-01-29] MEDS: REMOVE OLD PATCH T-DERMAL SCH ×2 (08:15→21:00)
[2017-01-29] MEDS: SODIUM CHLORIDE 0.9% FLUSH 10 ML FLUSH IV FLUSH SCH ×2 (08:15→21:00)
[2017-01-29] MEDS: NICOTINE 14 MG/24 HR PATCH T-DERMAL SCH (08:15)
--- NOTE | 2017-01-29 10:27 | HHI.PR ---
Subjective Remarks This is a pleasant 31 y/o Female who has no previous medical history who came to ER with Atypical left sided chest pain and Shortness of breath, She says the pain woke her up from sleep last night and got worse today. She says she has severe pain when taking deep breaths. She denies nausea or vomiting. 01/27: Seen in her bedroom in the presence of her Significant other. 01/28: Stable in her bedroom in the presence of her Significant Other, new CXR this morning showing, Tiny left apical Pneumothorax. 01/29: Patient with better Mood today, awaiting for final recommendations by costume specialist, she knows today her CXR has tiny left apical pneumothorax, seen her in the presence at all times of female nurse Amarjit she has positive Urine culture for E coli but the patient is asymptomatic, started on Ceftriaxone 1 gram daily while she is in house and will give by mouth medicine on discharge depend of sensitivity. Objective Vital Signs Date Time Temp Pulse Resp B/P Pulse Ox O2 Delivery O2 Flow Rate FiO2 01/29/17 08:00 98.4 66 17 120/78 98 01/29/17 04:00 98.4 54 20 111/68 97 01/29/17 00:00 98.8 62 20 123/73 97 01/28/17 20:00 98.2 52 21 114/71 97 01/28/17 16:00 98.6 61 18 108/63 98 01/28/17 12:00 97.1 56 18 119/70 98 I/O 01/28/17 01/28/17 01/28/17 01/29/17 01/29/17 01/29/17 07:00 15:00 23:00 07:00 15:00 23:00 Intake Total 1177 ml 1607 ml 907 ml 791 ml Output Total 1200 ml 1400 ml 20 ml 850 ml Balance -23 ml 207 ml 887 ml -59 ml Intake Oral 480 ml 720 ml 240 ml 240 ml IV Total 697 ml 887 ml 667 ml 551 ml Output Urine Total 1200 ml 1400 ml 850 ml Chest Tube Drainage Total 20 ml # Voids 2 # Bowel Movements 0 0 Result Diagram: 01/27/17 0050 01/27/17 0451 Imaging Last Impressions Chest X-Ray 01/29/17 0600 Signed Impressions: Service Date/Time: Sunday, January 29, 2017 05:03 - CONCLUSION: Left chest remains in good position. Tiny left apical pneumothorax persists. Lungs are clear. Taye Lyons MD Procedures Left Chest tube placement Other Results Laboratory Tests Test 01/26/17 01/26/17 01/27/17 01/27/17 13:00 15:45 00:50 04:51 Prothrombin Time 11.5 SEC Prothromb Time International 1.0 RATIO Ratio Activated Partial 28.5 SEC Thromboplast Time D-Dimer Quantitative (PE/DVT) 0.51 MG/L FEU Urine Opiates Screen NEG Urine Barbiturates Screen NEG Urine Amphetamines Screen POS Urine Benzodiazepines Screen NEG Urine Cocaine Screen NEG Urine Cannabinoids Screen POS Urine Color LIGHT-ORANGE Urine Turbidity CLOUDY Urine pH 6.0 Urine Specific [place] 1.036 Urine Protein 30 mg/dL Urine Glucose (UA) NEG mg/dL Urine Ketones 40 mg/dL Urine Occult Blood MOD Urine Nitrite POS Urine Bilirubin NEG Urine Urobilinogen LESS THAN 2.0 MG/DL Urine Leukocyte Esterase LARGE Urine WBC 93 /hpf Urine WBC Clumps MANY Urine Squamous Epithelial 5 /hpf Cells Urine Bacteria FEW /hpf Urine Mucus MANY /lpf Microscopic Urinalysis Comment CULTURE INDICATED White Blood Count 8.3 TH/MM3 Red Blood Count 4.18 MIL/MM3 Hemoglobin 12.3 GM/DL Hematocrit 37.5 % Mean Corpuscular Volume 89.6 FL Mean Corpuscular Hemoglobin 29.4 PG Mean Corpuscular Hemoglobin 32.8 % Concent Red Cell Distribution Width 12.6 % Platelet Count 159 TH/MM3 Mean Platelet Volume 7.8 FL Neutrophils (%) (Auto) 74.4 % Lymphocytes (%) (Auto) 19.2 % Monocytes (%) (Auto) 5.9 % Eosinophils (%) (Auto) 0.4 % Basophils (%) (Auto) 0.1 % Neutrophils # (Auto) 6.2 TH/MM3 Lymphocytes # (Auto) 1.6 TH/MM3 Monocytes # (Auto) 0.5 TH/MM3 Eosinophils # (Auto) 0.0 TH/MM3 Basophils # (Auto) 0.0 TH/MM3 CBC Comment DIFF FINAL Differential Comment Hemoglobin A1c 5.1 % Total Creatine Kinase 157 U/L Troponin I LESS THAN 0.02 NG/ML Free Thyroxine 1.43 NG/DL Thyroid Stimulating Hormone 0.279 uIU/ML 3rd Gen Sodium Level 143 MEQ/L Potassium Level 3.5 MEQ/L Chloride Level 111 MEQ/L Carbon Dioxide Level 20.0 MEQ/L Anion Gap 12 MEQ/L Blood Urea Nitrogen 9 MG/DL Creatinine 0.47 MG/DL Estimat Glomerular Filtration 155 ML/MIN Rate Random Glucose 68 MG/DL Calcium Level 8.0 MG/DL Triglycerides Level 47 MG/DL Cholesterol Level 97 MG/DL LDL Cholesterol 38 MG/DL HDL Cholesterol 49.9 MG/DL Cholesterol/HDL Ratio 1.94 RATIO Objective Remarks GENERAL: Awake and alert, in mild distress due to pain. SKIN: Focused skin assessment warm/dry. HEAD: Atraumatic. Normocephalic. ENT: Extraocular movements Intact NECK: Trachea midline. No JVD. RESPIRATORY: No accessory muscle use. Chest tube on left side present MUSCULOSKELETAL: No obvious deformities. No clubbing. No cyanosis. No edema. NEUROLOGICAL: Awake and alert. PSYCHIATRIC: Appropriate mood. Medications and IVs Current Medications Medications (Trade) Dose Ordered Sig/Halina Route Start Time Stop Time Status Last Admin (NS 1000 ml Inj) 1,000 ml @ 83 mls/hr Q12H3M IV 01/26/17 15:16 01/29/17 03:32 (NS Flush) 2 ml UNSCH PRN IV FLUSH 01/26/17 15:30 (NS Flush) 2 ml BID IV FLUSH 01/26/17 21:00 (Tylenol) 650 mg Q4H PRN PO 01/26/17 15:30 (Zofran Inj) 4 mg Q6H PRN IVP 01/26/17 15:30 (Dulcolax Supp) 10 mg DAILY PRN RECTAL 01/26/17 15:30 (Colace) 100 mg Q12H PO 01/26/17 15:30 01/29/17 03:32 (Narcan Inj) 0.4 mg UNSCH PRN IV 01/26/17 15:30 (Mucinex Er) 600 mg BID PO 01/26/17 21:00 01/29/17 08:15 (Habitrol 14 Mg Patch.24 Hr) 1 patch DAILY T-DERMAL 01/27/17 09:00 Miscellaneous Information 1 DAILY T-DERMAL 01/27/17 09:00 Miscellaneous Information 1 HS T-DERMAL 01/26/17 21:00 (Morphine Inj) 2 mg Q3H PRN IV PUSH 01/26/17 16:00 01/29/17 10:03 A/P Assessment and Plan 1. Large Left Spontaneous Pneumothorax, ECG shows sinus rhythm at 64, no ST elevation or depression, ST flattening in aVL. Chest tube inserted by ER specialist, continue Oxygen as needed, Bronchodilator, Mucolytic, incentive spirometry, Status post CXR found Persistent Left Tiny apical Pneumothorax, awaiting final recommendations by costume specialist. 2. Tobacco dependence given Nicotine replacement, strongly recommended to stop smoking 3. Polysubstance abuse strongly recommended to stop behavior. 4. UTI Asymptomatic to the patient, Urinary Culture giving E Coli started on Ceftriaxone and follow sensitivity for Discharge antibiotics. even for Asymptomatic UTI there is not recommended antibiotic therapy in this case I prefer to treat due to basal pathology and avoid complications. DVT prophylaxis with SCDs. Code Status Full Code. Discussed Condition With Patient and present at all times in the room nurse Miss Ocasio and all questions answered to the best of my abilities. Discharge Planning When clear by costume specialist. Mariano Montiel MD Jan 29, 2017 10:27
[2017-01-29] MEDS ORDERED: cefTRIAXone INJ 1,000 MG in SODIUM CHLORIDE 0.9% INJ 100 ML IV SCH (11:00)
[2017-01-29 12:00] VITALS: BP 137/81; PULSE 63; RESP 16; TEMP 96.4; O2SAT 99
--- NOTE | 2017-01-29 13:52 | RADRPT ---
EXAM DATE/TIME: 01/29/2017 12:21 [facility] COMPARISON: CHEST SINGLE AP, January 29, 2017, 5:03. INDICATIONS : Post chest tube removal from left side, evaluate for pneumothorax MEDICAL HISTORY : left apical pneumothorax SURGICAL HISTORY : chest tube ENCOUNTER: Subsequent ACUITY: 4 - 6 days PAIN SCORE: 0/10 LOCATION: Left chest FINDINGS: A single view of the chest demonstrates the lungs to be symmetrically aerated without evidence of mas s, infiltrate or effusion. No residual left apical pneumothorax. The cardiomediastinal contours are unremarkable. Osseous structures are intact. Minimal subcutaneous gas and lower lateral left chest wall, stable from prior CONCLUSION: The lungs are clear. No residual left apical pneumothorax. Nuno Beth MD on January 29, 2017 at 13:50 Board Certified Radiologist. This report was verified electronically.
[2017-01-29 16:00] VITALS: BP 124/74; PULSE 65; RESP 18; TEMP 98.2; O2SAT 98
--- NOTE | 2017-01-29 19:11 | HHI.PR ---
Subjective Remarks 31 YOWF with PTX, s/p Chest tube has mild CP Denies sob has cough Chest tube removed CXR no ptx Objective Vital Signs Vital Signs Date Time Temp Pulse Resp B/P Pulse Ox O2 Delivery O2 Flow Rate FiO2 01/29/17 16:00 98.2 65 18 124/74 98 01/29/17 12:00 96.4 63 16 137/81 99 01/29/17 08:00 98.4 66 17 120/78 98 01/29/17 04:00 98.4 54 20 111/68 97 01/29/17 00:00 98.8 62 20 123/73 97 01/28/17 20:00 98.2 52 21 114/71 97 I/O 01/28/17 01/28/17 01/28/17 01/29/17 01/29/17 01/29/17 07:00 15:00 23:00 07:00 15:00 23:00 Intake Total 1177 ml 1607 ml 907 ml 791 ml 1713 ml Output Total 1200 ml 1400 ml 20 ml 850 ml 700 ml Balance -23 ml 207 ml 887 ml -59 ml 1013 ml Intake Oral 480 ml 720 ml 240 ml 240 ml 960 ml IV Total 697 ml 887 ml 667 ml 551 ml 753 ml Output Urine Total 1200 ml 1400 ml 850 ml 700 ml Chest Tube Drainage Total 20 ml # Voids 2 # Bowel Movements 0 0 0 Result Diagram: 01/27/17 0050 01/27/17 0451 Objective Remarks GENERAL: MBMN WF NAD SKIN: Warm and dry. HEAD: Normocephalic. EYES: No scleral icterus. No injection or drainage. NECK: Supple, trachea midline. No JVD or lymphadenopathy. CARDIOVASCULAR: Regular rate and rhythm without murmurs, gallops, or rubs. RESPIRATORY: Breath sounds equal bilaterally. No accessory muscle use. Good BS bilat GASTROINTESTINAL: Abdomen soft, non-tender, nondistended. MUSCULOSKELETAL: No cyanosis, or edema. BACK: Nontender without obvious deformity. No CVA tenderness. A/P Assessment and Plan Left Spontaneous PTx resolved. Left Chest tube nicotine use PLAN: Stable after chest tube removal Advised no heavy lifting, flying or scuba diving for 2 weeks. Sarmad Fontenot MD Jan 29, 2017 19:11
[2017-01-29 20:00] VITALS: BP 132/83; PULSE 83; RESP 19; TEMP 96.3; O2SAT 98
[2017-01-30] VITALS: BP 111/62; PULSE 70; RESP 20; TEMP 98.3; O2SAT 99
[2017-01-30] MEDS: SODIUM CHLOR 0.9% 1000 ML INJ 1,000 ML IV SCH (03:27)
[2017-01-30] MEDS: DOCUSATE SODIUM 100 MG CAP PO SCH (03:29)
[2017-01-30] MEDS: MORPHINE SULFATE 4 MG/ML INJ IV PUSH PRN ×2 (03:29→06:12)
[2017-01-30 04:00] VITALS: BP 110/63; PULSE 68; RESP 21; TEMP 97.9; O2SAT 97
[2017-01-30] MEDS: REMOVE OLD PATCH T-DERMAL SCH (07:40)
[2017-01-30] MEDS: SODIUM CHLORIDE 0.9% FLUSH 10 ML FLUSH IV FLUSH SCH (07:40)
[2017-01-30] MEDS: guaiFENesin E.R. 600 MG TAB PO SCH (07:40)
[2017-01-30] MEDS: NICOTINE 14 MG/24 HR PATCH T-DERMAL SCH (07:41)
[2017-01-30 08:00] VITALS: BP 137/68; PULSE 60; RESP 18; TEMP 98.8; O2SAT 99
--- NOTE | 2017-01-30 08:16 | HHI.PR ---
Subjective Remarks This is a pleasant 31 y/o Female who has no previous medical history who came to ER with Atypical left sided chest pain and Shortness of breath, She says the pain woke her up from sleep last night and got worse today. She says she has severe pain when taking deep breaths. She denies nausea or vomiting. 01/27: Seen in her bedroom in the presence of her Significant other. 01/28: Stable in her bedroom in the presence of her Significant Other, new CXR this morning showing, Tiny left apical Pneumothorax. 01/29: Patient with better Mood today, awaiting for final recommendations by case manager specialist, she knows today her CXR has tiny left apical pneumothorax, seen her in the presence at all times of female nurse Miss Ocasio she has positive Urine culture for E coli but the patient is asymptomatic, started on Ceftriaxone 1 gram daily while she is in house and will give by mouth medicine on discharge depend of sensitivity. 01/30: Stable in her bedroom, seen in the presence of her Significant Other Mr. Lilly Hudson asked to both of them to Stop smoking, new CXR showed no residual Pneumothorax. okay from case manager specialist to discharge Home. advised no heavy lifting, flying or scuba diving for two weeks. by Doctor Sarmad Fontenot Objective Vital Signs Date Time Temp Pulse Resp B/P Pulse Ox O2 Delivery O2 Flow Rate FiO2 01/30/17 04:00 97.9 68 21 110/63 97 01/30/17 00:00 98.3 70 20 111/62 99 01/29/17 20:00 96.3 83 19 132/83 98 01/29/17 16:00 98.2 65 18 124/74 98 01/29/17 12:00 96.4 63 16 137/81 99 I/O 01/29/17 01/29/17 01/29/17 01/30/17 01/30/17 01/30/17 07:00 15:00 23:00 07:00 15:00 23:00 Intake Total 791 ml 1713 ml 907 ml 708 ml Output Total 850 ml 700 ml 600 ml 300 ml Balance -59 ml 1013 ml 307 ml 408 ml Intake Oral 240 ml 960 ml 240 ml 240 ml IV Total 551 ml 753 ml 667 ml 468 ml Output Urine Total 850 ml 700 ml 600 ml 300 ml # Bowel Movements 0 0 0 0 Result Diagram: 01/27/17 0050 01/27/17 0451 Imaging Last Impressions Chest X-Ray 01/29/17 0600 Signed Impressions: Service Date/Time: Sunday, January 29, 2017 05:03 - CONCLUSION: Left chest remains in good position. Tiny left apical pneumothorax persists. Lungs are clear. Taye Lyons MD Procedures Left Chest tube placement Other Results Laboratory Tests Test 01/26/17 01/26/17 01/27/17 01/27/17 13:00 15:45 00:50 04:51 Prothrombin Time 11.5 SEC Prothromb Time International 1.0 RATIO Ratio Activated Partial 28.5 SEC Thromboplast Time D-Dimer Quantitative (PE/DVT) 0.51 MG/L FEU Urine Opiates Screen NEG Urine Barbiturates Screen NEG Urine Amphetamines Screen POS Urine Benzodiazepines Screen NEG Urine Cocaine Screen NEG Urine Cannabinoids Screen POS Urine Color LIGHT-ORANGE Urine Turbidity CLOUDY Urine pH 6.0 Urine Specific Coker 1.036 Urine Protein 30 mg/dL Urine Glucose (UA) NEG mg/dL Urine Ketones 40 mg/dL Urine Occult Blood MOD Urine Nitrite POS Urine Bilirubin NEG Urine Urobilinogen LESS THAN 2.0 MG/DL Urine Leukocyte Esterase LARGE Urine WBC 93 /hpf Urine WBC Clumps MANY Urine Squamous Epithelial 5 /hpf Cells Urine Bacteria FEW /hpf Urine Mucus MANY /lpf Microscopic Urinalysis Comment CULTURE INDICATED White Blood Count 8.3 TH/MM3 Red Blood Count 4.18 MIL/MM3 Hemoglobin 12.3 GM/DL Hematocrit 37.5 % Mean Corpuscular Volume 89.6 FL Mean Corpuscular Hemoglobin 29.4 PG Mean Corpuscular Hemoglobin 32.8 % Concent Red Cell Distribution Width 12.6 % Platelet Count 159 TH/MM3 Mean Platelet Volume 7.8 FL Neutrophils (%) (Auto) 74.4 % Lymphocytes (%) (Auto) 19.2 % Monocytes (%) (Auto) 5.9 % Eosinophils (%) (Auto) 0.4 % Basophils (%) (Auto) 0.1 % Neutrophils # (Auto) 6.2 TH/MM3 Lymphocytes # (Auto) 1.6 TH/MM3 Monocytes # (Auto) 0.5 TH/MM3 Eosinophils # (Auto) 0.0 TH/MM3 Basophils # (Auto) 0.0 TH/MM3 CBC Comment DIFF FINAL Differential Comment Hemoglobin A1c 5.1 % Total Creatine Kinase 157 U/L Troponin I LESS THAN 0.02 NG/ML Free Thyroxine 1.43 NG/DL Thyroid Stimulating Hormone 0.279 uIU/ML 3rd Gen Sodium Level 143 MEQ/L Potassium Level 3.5 MEQ/L Chloride Level 111 MEQ/L Carbon Dioxide Level 20.0 MEQ/L Anion Gap 12 MEQ/L Blood Urea Nitrogen 9 MG/DL Creatinine 0.47 MG/DL Estimat Glomerular Filtration 155 ML/MIN Rate Random Glucose 68 MG/DL Calcium Level 8.0 MG/DL Triglycerides Level 47 MG/DL Cholesterol Level 97 MG/DL LDL Cholesterol 38 MG/DL HDL Cholesterol 49.9 MG/DL Cholesterol/HDL Ratio 1.94 RATIO Objective Remarks GENERAL: Awake and alert, in mild distress due to pain. SKIN: Focused skin assessment warm/dry. HEAD: Atraumatic. Normocephalic. ENT: Extraocular movements Intact NECK: Trachea midline. No JVD. RESPIRATORY: No accessory muscle use. clear to auscultation bilateral. MUSCULOSKELETAL: No obvious deformities. No clubbing. No cyanosis. No edema. NEUROLOGICAL: Awake and alert. PSYCHIATRIC: Appropriate mood. Medications and IVs Current Medications Medications (Trade) Dose Ordered Sig/Halina Route Start Time Stop Time Status Last Admin (NS 1000 ml Inj) 1,000 ml @ 83 mls/hr Q12H3M IV 01/26/17 15:16 01/30/17 03:27 (NS Flush) 2 ml UNSCH PRN IV FLUSH 01/26/17 15:30 (NS Flush) 2 ml BID IV FLUSH 01/26/17 21:00 (Tylenol) 650 mg Q4H PRN PO 01/26/17 15:30 (Zofran Inj) 4 mg Q6H PRN IVP 01/26/17 15:30 (Dulcolax Supp) 10 mg DAILY PRN RECTAL 01/26/17 15:30 (Colace) 100 mg Q12H PO 01/26/17 15:30 01/30/17 03:29 (Narcan Inj) 0.4 mg UNSCH PRN IV 01/26/17 15:30 (Mucinex Er) 600 mg BID PO 01/26/17 21:00 01/30/17 07:40 (Habitrol 14 Mg Patch.24 Hr) 1 patch DAILY T-DERMAL 01/27/17 09:00 Miscellaneous Information 1 DAILY T-DERMAL 01/27/17 09:00 Miscellaneous Information 1 HS T-DERMAL 01/26/17 21:00 Morphine Sulfate 2 mg 2 mg Q3H PRN IV PUSH 01/26/17 16:00 01/30/17 06:12 (Rocephin Inj/NS Inj) 100 ml @ 200 mls/hr Q24H IV 01/29/17 11:00 01/29/17 12:25 A/P Assessment and Plan 1. Large Left Spontaneous Pneumothorax, ECG shows sinus rhythm at 64, no ST elevation or depression, ST flattening in aVL. Chest tube inserted by ER specialist, continue Oxygen as needed, Bronchodilator, Mucolytic, incentive spirometry, Status post new CXR no residual Pneumothorax. 2. Tobacco dependence given Nicotine replacement, strongly recommended to stop smoking 3. Polysubstance abuse strongly recommended to stop behavior. 4. UTI Asymptomatic to the patient, Urinary Culture giving E Coli started on Ceftriaxone and follow sensitivity for Discharge antibiotics. even for Asymptomatic UTI there is not recommended antibiotic therapy in this case I prefer to treat due to basal pathology and avoid complications. will continue Cipro by mouth. DVT prophylaxis with SCDs. Code Status Full Code. Discussed Condition With Stable in her bedroom, seen in the presence of her Significant Other Mr. Lilly Hudson asked to both of them to Stop smoking, new CXR showed no residual Pneumothorax. okay from case manager specialist to discharge Home. advised no heavy lifting, flying or scuba diving for two weeks. by Doctor Sarmad Fontenot Discharge Planning discharge Home. Mariano Montiel MD Jan 30, 2017 08:16
--- NOTE | 2017-01-30 09:16 | RADRPT ---
EXAM DATE/TIME: 01/30/2017 08:45 [facility] COMPARISON: CHEST SINGLE AP, January 29, 2017, 12:21. CHEST PA & LAT, January 26, 2017, 13:30. INDICATIONS : Evaluate pneumothorax. Chest tube removed. MEDICAL HISTORY : None. SURGICAL HISTORY : None. ENCOUNTER: Subsequent ACUITY: 4 - 6 days PAIN SCORE: 0/10 LOCATION: Bilateral chest FINDINGS: A single view of the chest demonstrates the lungs to be symmetrically aerated without evidence of mas s, infiltrate or effusion. No residual left apical pneumothorax. The cardiomediastinal contours are unremarkable. Osseous structures are intact. Minimal subcutaneous gas and lower lateral left chest wall, stable from prior CONCLUSION: The lungs are clear. No residual left pneumothorax. Nuno Beth MD on January 30, 2017 at 9:14 Board Certified Radiologist. This report was verified electronically.
[2017-01-30] MEDS ORDERED: MUCI600T PO (09:58)
[2017-01-30] MEDS ORDERED: NICO14DI T-DERMAL (09:58)
[2017-01-30] MEDS ORDERED: CIPR-9 PO (09:58)
--- NOTE | 2017-01-30 10:00 | HHI.DS ---
Discharge Summary Admission Date Jan 26, 2017 at 15:19 Discharge Date: Jan 30, 2017 Admitting Diagnosis pneumothorax (1) Pneumothorax ICD Code: J93.9 Diagnosis: Principal Procedures Left Chest tube placement Brief History - From Admission This is a pleasant 31 y/o Female who has no previous medical history who came to ER with Atypical left sided chest pain and Shortness of breath, She says the pain woke her up from sleep last night and got worse today. She says she has severe pain when taking deep breaths. She denies nausea or vomiting. She denies any leg pain or swelling. She denies any recent travel. the patient was seen in Emergency Room in the presence of Mr Rodriguez Strong and her Father Mr. Nuno Gil, she is stable somnolent due to pain medicine, but answer my questions. CBC/BMP: 01/27/17 0050 01/27/17 0451 Imaging Last Impressions Chest X-Ray 01/30/17 0000 Signed Impressions: Service Date/Time: Monday, January 30, 2017 08:45 - CONCLUSION: The lungs are clear. No residual left pneumothorax. Nuno Beth MD PE at Discharge GENERAL: Awake and alert, in mild distress due to pain. SKIN: Focused skin assessment warm/dry. HEAD: Atraumatic. Normocephalic. ENT: Extraocular movements Intact NECK: Trachea midline. No JVD. RESPIRATORY: No accessory muscle use. clear to auscultation bilateral. MUSCULOSKELETAL: No obvious deformities. No clubbing. No cyanosis. No edema. NEUROLOGICAL: Awake and alert. PSYCHIATRIC: Appropriate mood. Hospital Course This is a pleasant 31 y/o Female who has no previous medical history who came to ER with Atypical left sided chest pain and Shortness of breath, She says the pain woke her up from sleep last night and got worse today. She says she has severe pain when taking deep breaths. She denies nausea or vomiting. 01/27: Seen in her bedroom in the presence of her Significant other. 01/28: Stable in her bedroom in the presence of her Significant Other, new CXR this morning showing, Tiny left apical Pneumothorax. 01/29: Patient with better Mood today, awaiting for final recommendations by design specialist, she knows today her CXR has tiny left apical pneumothorax, seen her in the presence at all times of female nurse Miss Ocasio she has positive Urine culture for E coli but the patient is asymptomatic, started on Ceftriaxone 1 gram daily while she is in house and will give by mouth medicine on discharge depend of sensitivity. 01/30: Stable in her bedroom, seen in the presence of her Significant Other Mr. Lilly Hudson asked to both of them to Stop smoking, new CXR showed no residual Pneumothorax. okay from design specialist to discharge Home. advised no heavy lifting, flying or scuba diving for two weeks. by Doctor Sarmad Fontenot Assessment and Plan 1. Large Left Spontaneous Pneumothorax, ECG shows sinus rhythm at 64, no ST elevation or depression, ST flattening in aVL. Chest tube inserted by ER specialist, continue Oxygen as needed, Bronchodilator, Mucolytic, incentive spirometry, Status post new CXR no residual Pneumothorax. 2. Tobacco dependence given Nicotine replacement, strongly recommended to stop smoking 3. Polysubstance abuse strongly recommended to stop behavior. 4. UTI Asymptomatic to the patient, Urinary Culture giving E Coli started on Ceftriaxone and follow sensitivity for Discharge antibiotics. even for Asymptomatic UTI there is not recommended antibiotic therapy in this case I prefer to treat due to basal pathology and avoid complications. will continue Cipro by mouth. DVT prophylaxis with SCDs. Code Status Full Code. Discussed Condition With Stable in her bedroom, seen in the presence of her Significant Other Mr. Lilly Hudson asked to both of them to Stop smoking, new CXR showed no residual Pneumothorax. okay from design specialist to discharge Home. advised no heavy lifting, flying or scuba diving for two weeks. by Doctor Sarmad Fontenot Discharge Planning discharge Home. Pt Condition on Discharge: Good Discharge Disposition: Discharge Home Discharge Time: > 30 minutes Discharge Instructions DIET: Follow Instructions for: As Tolerated, No Restrictions Activities you can perform: Regular-No Restrictions Mariano Montiel MD Jan 30, 2017 10:00
== END 2017-01-30 11:04 | disposition home or self-care (01) | DRG 200 ==
LOC: NEPD 12:26 → NEDA 15:19 → N07B 18:07
PROVIDERS: ADMIT Internal Medicine; ATTEND Internal Medicine
PROC: 0W9B30Z Drainage of Left Pleural Cavity with Drainage Device, Percutaneous Approach (ICD-10-PCS; principal; 2017-01-26)
DX: J93.83 Other pneumothorax (principal); N39.0 Urinary tract infection, site not specified; B96.20 Unspecified Escherichia coli [E. coli] as the cause of diseases classified elsewhere; F17.210 Nicotine dependence, cigarettes, uncomplicated
CPT/HCPCS: 32551; 71010; 71020; 80048; 80061; 80307; 81001; 82550; 83036; 84439; 84443; 84484; 84703; 85025; 85379; 85610; 85730; 87040; 87077; 87086; 87186; 93005; 94150; 94640; 94664; 96374; 96375; J0696; J1170; J1885; J2250; J2270; J7030